=== PATIENT | female | born 1965 | race Caucasian/White ===

== ENCOUNTER 2020-08-01 12:14 | Emergency (ER) | payer OTHER ==
[~2020-08-01] VITALS: Ht 177.8 cm; Wt 78.0 kg
[2020-08-01] MEDS ORDERED: Percocet 5-3251 EACH PO (15:31)
== END 2020-08-01 15:51 | disposition home or self-care (01) ==
LOC: ER 12:14
DX: S52.502A Unspecified fracture of the lower end of left radius, initial encounter for closed fracture (principal); F17.200 Nicotine dependence, unspecified, uncomplicated; W18.30XA Fall on same level, unspecified, initial encounter
CPT/HCPCS: 25605; 73100; 73110; 96372-59; 99283-25; J3010

== ENCOUNTER 2020-08-09 11:27 | Day surgery (SDC) | payer OTHER ==
[~2020-08-09] VITALS: Ht 172.7 cm; Wt 77.7 kg
[~2020-08-09 11:27] MED LIST: Percocet 5-3251 EACH PO
--- NOTE | 2020-08-09 11:58 | NUR ---
Ambulatory in Day Surgery History, Chart, Medications and Allergies reviewed before start of procedure. Lungs clear T/O to Auscultation. Patient confirms NPO status and agrees with scheduled surgery. Pre-Op teaching done. Pt verbalizes understanding. Patient States Post-Procedure ride home has been arranged.
--- NOTE | 2020-08-09 15:33 | NUR ---
INTO STEP RECIEVED REPORT AND PATIENT DRESSING INTACT VSS. GIVEN JUICE AND CRACKERS RATES PAIN AT 7 GIVEN PAIN PILL
--- NOTE | 2020-08-09 16:37 | NUR ---
SOME NAUSEA AND PAIN RXS HAVE MEDICATED NEEDED PATIENT CONTINUES TO RATE PAIN AT A 7/10. AFTER TWO DOSES OF PAIN RX NOW COMPLAINING OF NAUSEA. RX GIVEN. WET COOL WASH CLOTH GIVEN.
--- NOTE | 2020-08-09 17:25 | NUR ---
ASSUMED CARE. PT SLEEPING/RESTING COMFORTABLE. HAVING GOOD RELIEF WITH PAIN MED GIVEN. CONTINUE TO MONITOR.
--- NOTE | 2020-08-09 18:00 | NUR ---
Discharge instructions reviewed with patient. Patient verbalizes understanding. Copy given to patient to take home. Dressing to procedure site clean, dry, intact with no visible drainage, swelling, erythema or bruising noted. Patient States Post-Procedure ride home has been arranged. Dangled at bedside and got dizzy. Layed back down for a few minutes.
--- NOTE | 2020-08-09 18:15 | NUR ---
Sat up at bedside and some slight dizziness but able to ambulate to wheelchair. Discharged via wheelchair to private car for ride home.
--- NOTE | 2020-08-09 18:46 | NUR ---
AT 1730 TURNED CARE OVER TO PENELOPE CIFUENTES.
== END 2020-08-09 18:15 | disposition home or self-care (01) ==
LOC: ORSCMMR 11:27
PROVIDERS: Orthopaedic Surgery
PROC: 0PSJ04Z Reposition Left Radius with Internal Fixation Device, Open Approach (ICD-10-PCS; principal; 2020-08-09 12:30)
DX: S52.572A Other intraarticular fracture of lower end of left radius, initial encounter for closed fracture (principal); F17.210 Nicotine dependence, cigarettes, uncomplicated
CPT/HCPCS: A9270; C1713; J0171; J0690; J1100; J1170; J1885; J2250; J2405; J2704; J2765; J3010; J7120